=== PATIENT | male | born 1975 | race Caucasian/White ===

== ENCOUNTER 2019-06-21 20:57 | Observation (INO) | payer MEDICAID, OTHER ==
[2019-06-21 22:10] LABS: ADD MAN DIFF? NO
[2019-06-21 22:17] LABS: BASOPHIL # 0.1 10^3/ul (0.0-0.1); BASOPHILS % 0.8 % (0.0-2.0); EOSINOPHILS # 0.4 10^3/ul (0.0-0.5); EOSINOPHILS % 4.4 % (0.0-7.0); HEMOGLOBIN 15.7 g/dl (14.0-18.0); LYMPHOCYTES # 3.5 10^3/ul (0.8-2.9); LYMPHOCYTES % 39.9 % (15.0-51.0); MEAN CORPUSCULAR HEMOGLOBIN 30.7 pg (29.0-33.0); MEAN CORPUSCULAR HGB CONC 33.4 g/dl (32.0-37.0); MEAN PLATELET VOLUME 11.9 fl (7.4-10.4); MONOCYTE # 0.8 10^3/ul (0.3-0.9); MONOCYTES % 9.2 % (0.0-11.0); NEUTROPHILS % 45.5 % (39.0-77.0); PLATELET COUNT 232 10^3/UL (140-415); RED BLOOD COUNT 5.11 10^6/ul (4.70-6.10)
[2019-06-21 22:17] LABS: WHITE BLOOD COUNT 8.7 10^3/ul (4.8-10.8)
[2019-06-21 22:37] LABS: ALANINE AMINOTRANSFERASE 42 IU/L (13-69); ALBUMIN 4.7 g/dl (3.3-4.9); ALBUMIN/GLOBULIN RATIO 1.27; ALKALINE PHOSPHATASE 90 IU/L (42-121); ANION GAP 9 (5-13); ASPARTATE AMINO TRANSFERASE 33 IU/L (15-46); BILIRUBIN,INDIRECT 0.5 mg/dl (0-1.1); BILIRUBIN,TOTAL 0.5 mg/dl (0.2-1.3); BLOOD UREA NITROGEN 9 mg/dl (7-20); CALCIUM 9.5 mg/dl (8.4-10.2); CARBON DIOXIDE 29 mmol/L (21-31); CHLORIDE 101 mmol/L (97-110); CREATININE 0.97 mg/dl (0.61-1.24); Estimated GFR > 60 mL/min (>60); GLUCOSE 94 mg/dl (70-220); POTASSIUM 3.8 mmol/L (3.5-5.1); SODIUM 139 mmol/L (135-144); TOTAL PROTEIN 8.4 g/dl (6.1-8.1)
[2019-06-21 22:47] LABS: TROPONIN-I < 0.012 ng/ml (0.000-0.120)
[2019-06-21] MEDS ORDERED: ACETAMINOPHEN 325 MG TAB PO (23:00)
[2019-06-21] MEDS ORDERED: ONDANSETRON 4 MG INJ IV (23:00)
[2019-06-21] MEDS: ASPIRIN 325 MG TAB PO (23:25)
[2019-06-21] MEDS: NITROGLYCERIN 2% 1 GM OINT PKT TD (23:28)
[2019-06-22] MEDS ORDERED: NITROGLYCERIN (SL) 0.4 MG TAB SL (02:00)
[2019-06-22] MEDS ORDERED: NACL 0.9% 3 ML SYG IV (02:00)
[2019-06-22] MEDS ORDERED: ACETAMINOPHEN 325 MG TAB PO (02:00)
[2019-06-22] MEDS ORDERED: ONDANSETRON 4 MG INJ IV (02:00)
[2019-06-22] MEDS ORDERED: ALBUTEROL/IPRATROPIUM (NEB) 3 ML AMP HHN (02:00)
[2019-06-22 02:36] LABS: CREATINE KINASE 123 IU/L (23-200)
[2019-06-22 02:46] LABS: CK-MB 0.64 ng/ml (0.0-2.4)
[2019-06-22 05:38] LABS: ADD MAN DIFF? NO
[2019-06-22 05:42] LABS: BASOPHIL # 0.1 10^3/ul (0.0-0.1); BASOPHILS % 0.8 % (0.0-2.0); EOSINOPHILS # 0.4 10^3/ul (0.0-0.5); EOSINOPHILS % 5.8 % (0.0-7.0); HEMATOCRIT 44.5 % (42.0-52.0); HEMOGLOBIN 14.8 g/dl (14.0-18.0); LYMPHOCYTES # 2.3 10^3/ul (0.8-2.9); LYMPHOCYTES % 37.8 % (15.0-51.0); MEAN CORPUSCULAR HEMOGLOBIN 30.7 pg (29.0-33.0); MEAN CORPUSCULAR HGB CONC 33.3 g/dl (32.0-37.0); MEAN CORPUSCULAR VOLUME 92.3 fl (82.0-101.0); MEAN PLATELET VOLUME 11.6 fl (7.4-10.4); MONOCYTE # 0.7 10^3/ul (0.3-0.9); MONOCYTES % 10.8 % (0.0-11.0); NEUTROPHIL # 2.7 10^3/ul (1.6-7.5); NEUTROPHILS % 44.6 % (39.0-77.0); PLATELET COUNT 197 10^3/UL (140-415); RED BLOOD COUNT 4.82 10^6/ul (4.70-6.10); RED CELL DISTRIBUTION WIDTH 13.2 % (11.5-14.5)
[2019-06-22 06:19] LABS: CREATINE KINASE 96 IU/L (23-200)
[2019-06-22 06:27] LABS: ALANINE AMINOTRANSFERASE 43 IU/L (13-69); ALBUMIN 3.9 g/dl (3.3-4.9); ALBUMIN/GLOBULIN RATIO 1.11; ALKALINE PHOSPHATASE 80 IU/L (42-121); ANION GAP 6 (5-13); ASPARTATE AMINO TRANSFERASE 28 IU/L (15-46); BILIRUBIN,INDIRECT 0.7 mg/dl (0-1.1); BILIRUBIN,TOTAL 0.7 mg/dl (0.2-1.3); BLOOD UREA NITROGEN 9 mg/dl (7-20); CARBON DIOXIDE 28 mmol/L (21-31); CHLORIDE 106 mmol/L (97-110); CHOL/HDL RATIO 7.3 RATIO; CHOLESTEROL 207 mg/dl (100-200); CREATININE 1.01 mg/dl (0.61-1.24); Estimated GFR > 60 mL/min (>60); GLUCOSE 106 mg/dl (70-220); HDL CHOLESTEROL 28 mg/dl (27-67); LDL CHOLESTEROL,CALCULATED 123 mg/dl; MAGNESIUM 2.3 mg/dl (1.7-2.5); POTASSIUM 4.1 mmol/L (3.5-5.1); SODIUM 140 mmol/L (135-144); TOTAL PROTEIN 7.4 g/dl (6.1-8.1); TRIGLYCERIDES 282 mg/dl (0-149)
[2019-06-22 06:32] LABS: CK INDEX 0.6; CK-MB 0.53 ng/ml (0.0-2.4); TROPONIN-I < 0.012 ng/ml (0.000-0.120)
[2019-06-22 07:18] LABS: HEMOGLOBIN A1C 5.1 % (0-5.9)
[2019-06-22] MEDS: ASPIRIN 81 MG TAB PO (08:45)
[2019-06-22] MEDS: ENOXAPARIN 40 MG/0.4 ML SYG SC (08:45)
[2019-06-22] MEDS: ATORVASTATIN 80 MG TAB PO (13:21)
[2019-06-22] MEDS ORDERED: METOPROLOL 25 MG TAB PO (17:00)
[2019-06-22] MEDS: FISH OIL 1,000 MG CAP PO (21:16)
[2019-06-23 06:28] LABS: ADD MAN DIFF? NO
[2019-06-23] MEDS: METOPROLOL 25 MG TAB PO (06:31)
[2019-06-23 06:32] LABS: BASOPHILS % 0.6 % (0.0-2.0); EOSINOPHILS # 0.4 10^3/ul (0.0-0.5); EOSINOPHILS % 6.3 % (0.0-7.0); HEMOGLOBIN 15.4 g/dl (14.0-18.0); LYMPHOCYTES # 2.2 10^3/ul (0.8-2.9); LYMPHOCYTES % 34.3 % (15.0-51.0); MEAN CORPUSCULAR HEMOGLOBIN 30.6 pg (29.0-33.0); MEAN CORPUSCULAR HGB CONC 33.5 g/dl (32.0-37.0); MEAN CORPUSCULAR VOLUME 91.5 fl (82.0-101.0); MEAN PLATELET VOLUME 11.9 fl (7.4-10.4); MONOCYTE # 0.6 10^3/ul (0.3-0.9); MONOCYTES % 9.9 % (0.0-11.0); NEUTROPHIL # 3.1 10^3/ul (1.6-7.5); NEUTROPHILS % 48.4 % (39.0-77.0); PLATELET COUNT 217 10^3/UL (140-415); RED BLOOD COUNT 5.03 10^6/ul (4.70-6.10); RED CELL DISTRIBUTION WIDTH 12.7 % (11.5-14.5)
[2019-06-23 06:32] LABS: WHITE BLOOD COUNT 6.4 10^3/ul (4.8-10.8)
[2019-06-23 06:50] LABS: ANION GAP 7 (5-13); BLOOD UREA NITROGEN 13 mg/dl (7-20); CALCIUM 9.4 mg/dl (8.4-10.2); CARBON DIOXIDE 28 mmol/L (21-31); CHLORIDE 107 mmol/L (97-110); CREATININE 0.94 mg/dl (0.61-1.24); Estimated GFR > 60 mL/min (>60); GLUCOSE 89 mg/dl (70-220); MAGNESIUM 2.2 mg/dl (1.7-2.5); POTASSIUM 4.3 mmol/L (3.5-5.1); SODIUM 142 mmol/L (135-144)
[2019-06-23] MEDS: ASPIRIN 81 MG TAB PO (08:20)
[2019-06-23] MEDS: FISH OIL 1,000 MG CAP PO (08:20)
[2019-06-23] MEDS: ENOXAPARIN 40 MG/0.4 ML SYG SC (08:42)
[2019-06-23] MEDS ORDERED: LABETALOL HCL 20MG INJ (08:44)
[2019-06-23] MEDS ORDERED: NITROGLYCERIN AEROSOL (4.9 GM) (08:44)
[2019-06-23] MEDS: SOD CHLORIDE 0.9% 100 ML (09:26)
[2019-06-23] MEDS: IOHEXOL 100 ML (09:27)
[2019-06-23] MEDS: ERGOCALCIFEROL 50,000 UNIT CAP PO (13:31)
[2019-06-23] MEDS ORDERED: ATORVASTATIN 80 MG TAB PO (21:00)
== END 2019-06-23 15:14 | disposition home or self-care (01) ==
LOC: E/R 20:57 → 6WM 22:48
DX: R07.9 Chest pain, unspecified (principal); I10 Essential (primary) hypertension; E78.5 Hyperlipidemia, unspecified
CPT/HCPCS: 36415; 71045; 75571-59; 75574; 80048; 80053; 80061; 82306; 82550; 82553; 82607; 82652; 83036; 83735; 84100; 84443; 84484; 85025; 93005; 93306; 99285-25